=== PATIENT | male | born 1945 | race Caucasian/White ===

== ENCOUNTER 2016-07-31 10:14 | Inpatient (IN) | payer OTHER, BC ==
[~2016-07-31] VITALS: Ht 182.9 cm; Wt 160.0 kg
[~2016-07-31 10:14] MED LIST: ADVAIR 250/501 DISK IH; AMARYL1 MG PO; AMARYL2 MG PO; ASPIR-LOW81 MG PO; ASPIRIN EC325 MG PO; Advair 250/50 Diskus IH; Amaryl PO; BETAGAN BOTH EYES; CALCIUM MAGNES1 EACH PO; Coumadin,Jantoven PO; DAILY VITAMIN1 EAC8 PO; ENDOCET 5-3251 EACH PO; FEOSOL325 MG PO; Feosol PO; HYTRIN5 MG PO; Hytrin PO; JALYN 0.5-0.41 EACH PO; JALYN PO; LO-DOSE ASPIRIN81 M1 PO; LOTENSIN40 MG PO; Lotensin PO; MEVACOR10 MG PO; MUPIROCIN22 GM TP; Mevacor PO; Mycostatin TP; OMEGA 3 500 SO1 EACH PO; PERCOCET 5/31 TABLET PO; POTASSIUM-9999 MG PO; ROBAXIN500 MG PO; Robaxin PO; SENNA-TIME S T1 EACH PO; SUPERIOR DIGES1 EACH PO; Senokot S,Pericolace PO; TENORMIN25 MG PO; TRAMADOL HCL50 MG PO; Tenormin PO; XALATAN2.5 ML BOTH EYES; oxyCODONE PO
[2016-07-31 11:22] LABS: HEMATOCRIT 41.4 % (38.0-50.0); MCH 31.9 PG (29.0-34.0); MCHC 34.1 G/DL (30.0-36.0); MCV 93.7 FL (86-99); MEAN PLAT.VOLUME 10.4 uM^3 (9.0-12.4); PLATELET COUNT 177 K/uL (156-360); RBC DIS.WIDTH-SD 48.6 % (39-53); RED BLOOD COUNT 4.42 M/uL (4.00-5.50); WHITE BLOOD COUNT 8.9 K/uL (4.1-10.2)
[2016-07-31 11:31] LABS: CHLORIDE 107 mEq/L (99-109); POTASSIUM 4.9 mEq/L (3.7-5.4); SODIUM 139 mEq/L (136-147)
[2016-07-31 11:32] LABS: GLUCOSE 149 mg/dL (70-99)
[2016-07-31 11:34] LABS: ANION GAP 10 MEQ/L (2-14)
[2016-07-31 11:36] LABS: GFR ESTIMATE (CALCULATED) 53 mL/min/
[2016-07-31 11:37] LABS: UREA NITROGEN (BUN) 31 mg/dL (9-23)
[2016-07-31 11:44] LABS: TROP-I INTERPRETATION NEGATIVE; TROPONIN-I < 0.01 ng/mL (0.0-0.30)
[2016-07-31 13:58] LABS: TOTAL BILIRUBIN 0.9 mg/dL (0.0-1.0)
[2016-07-31 13:59] LABS: ALKALINE PHOSPHATASE 48 IU/L (3-129); SERUM ETHYL ALCOHOL < 10 mg/dL
[2016-07-31 14:02] LABS: DIRECT BILIRUBIN 0.3 mg/dL (0.0-0.3)
[2016-07-31 14:03] LABS: CREATINE KINASE 105 IU/L (1-294)
[2016-07-31 17:18] LABS: D-DIMER ELISA 0.51 mg/L FEU (< 0.57)
[2016-07-31 17:18] LABS: ADD MIUA? NO; BILIRUBIN NEGATIVE; BLOOD NEGATIVE; COLOR YELLOW ((YELLOW)); GLUCOSE (STRIP) NEGATIVE; KETONES 5; LEUKOCYTES NEGATIVE; NITRITE NEGATIVE; PROTEIN (STRIP) NEGATIVE; SPECIFIC GRAVITY 1.012 (1.000-1.030); UROBILINOGEN 0.2 MG/DL (0.2-1.0)
[2016-07-31] MEDS ORDERED: LOTENSIN10 MG PO (23:11)
[2016-07-31] MEDS ORDERED: DAILY VITAMIN1 EAC2 PO (23:13)
[2016-07-31] MEDS ORDERED: BUMETANIDE0.5 MG PO (23:15)
[2016-07-31] MEDS ORDERED: XARELTO20 MG PO (23:15)
[2016-07-31] MEDS ORDERED: LOPRESSOR25 MG PO (23:16)
[2016-08-01] VITALS (8 sets, daily range): BP systolic 74–123; BP diastolic 50–72
[2016-08-01 05:44] LABS: EOSINOPHIL (%) 1.4 % (0-5); EOSINOPHIL COUNT 0.1 K/uL (0-0.3); IMMATURE GRANULOCYTE (%) 0.5 % (0.0-0.7); INSTRUMENT ABS NEUTROPHIL CT 4.6 K/uL; MCH 31.4 PG (29.0-34.0); MCHC 33.1 G/DL (30.0-36.0); MEAN PLAT.VOLUME 10.3 uM^3 (9.0-12.4); MONOCYTE (%) 13.1 % (3-12); MONOCYTE COUNT 0.9 K/uL (0-0.8); NEUTROPHIL (%) 69.8 % (45-76); NEUTROPHIL COUNT 4.6 K/uL (1.8-6.4); PLATELET COUNT 149 K/uL (156-360); RBC DIS.WIDTH-CV 14.2 % (11.8-14.6); RBC DIS.WIDTH-SD 49.6 % (39-53); RED BLOOD COUNT 3.79 M/uL (4.00-5.50); WHITE BLOOD COUNT 6.6 K/uL (4.1-10.2)
[2016-08-01 06:34] LABS: ANION GAP 10 MEQ/L (2-14); CHLORIDE 107 MEQ/L (99-109); GFR ESTIMATE (CALCULATED) 58 mL/min/; SAMPLE HEMOLYSIS CHECK 0; SAMPLE ICTERIC CHECK 0; SAMPLE LIPEMIA CHECK 0; SODIUM 143 MEQ/L (136-147); UREA NITROGEN (BUN) 24 mg/dL (9-23)
[2016-08-01 06:37] LABS: GLUCOSE 93 mg/dL (70-99)
[2016-08-01 08:59] LABS: METH RESISTANT S AUREUS PCR NEGATIVE (NEGATIVE); PROBE CHECK PASS; SPECIMEN PROCESSING CONTROL PASS
[2016-08-01 23:30] LABS: EOSINOPHIL (%) 1.6 % (0-5); EOSINOPHIL COUNT 0.1 K/uL (0-0.3); HEMATOCRIT 36.5 % (38.0-50.0); IMMATURE GRANULOCYTE (%) 0.3 % (0.0-0.7); INSTRUMENT ABS NEUTROPHIL CT 4.4 K/uL; LYMPHOCYTE COUNT 0.9 K/uL (1.0-2.8); MCH 31.9 PG (29.0-34.0); MCHC 33.4 G/DL (30.0-36.0); MCV 95.3 FL (86-99); MEAN PLAT.VOLUME 10.2 uM^3 (9.0-12.4); MONOCYTE (%) 12.4 % (3-12); MONOCYTE COUNT 0.8 K/uL (0-0.8); NEUTROPHIL (%) 71.5 % (45-76); NEUTROPHIL COUNT 4.4 K/uL (1.8-6.4); PLATELET COUNT 161 K/uL (156-360); RBC DIS.WIDTH-CV 14.2 % (11.8-14.6); RBC DIS.WIDTH-SD 49.9 % (39-53); RED BLOOD COUNT 3.83 M/uL (4.00-5.50); WHITE BLOOD COUNT 6.2 K/uL (4.1-10.2)
[2016-08-02 04:15] VITALS: BP 111/62
[2016-08-02 06:03] LABS: ANION GAP 6 MEQ/L (2-14); CHLORIDE 111 MEQ/L (99-109); GFR ESTIMATE (CALCULATED) 58 mL/min/; GLUCOSE 102 mg/dL (70-99); IRON 28 MCG/DL (35-150); MAGNESIUM 1.8 mg/dl (1.3-2.7); POTASSIUM 3.8 MEQ/L (3.7-5.4); SAMPLE HEMOLYSIS CHECK 0; SAMPLE ICTERIC CHECK 0; SAMPLE LIPEMIA CHECK 0; SODIUM 141 MEQ/L (136-147); UREA NITROGEN (BUN) 19 mg/dL (9-23)
[2016-08-02 07:55] LABS: FERRITIN 183 NG/ML (22-322)
[2016-08-02 10:10] LABS: POINT-OF-CARE METER ID UU14162513
[2016-08-02 11:44] LABS: APPEARANCE LT.RED/CLOUDY; CRYSTALS NO CRYSTALS SEEN
[2016-08-02 11:45] LABS: RED CELL AREA COUNTED 8; RED CELL COUNT 39875 /MM^3 (0-1); RED CELL DILUTION 100; WBC AREA COUNTED 8; WBC DILUTION 100; WHITE CELL COUNT 56250 /MM^3 (0-200.0); WHITE CELL RAW COUNT 450
[2016-08-02 11:51] LABS: MONO RAW COUNT 9; MONONUCLEAR WBC'S 9 %; POLY RAW COUNT 91; POLYNUCLEAR WBC'S 91 % (0-25); SYNOVIAL FLUID EOSINOPHILS 0 % (0-25)
[2016-08-02 12:30] VITALS: BP 112/68
[2016-08-02 13:17] LABS: POINT-OF-CARE METER ID UU14162513
[2016-08-02 16:30] VITALS: BP 119/68
[2016-08-02 16:56] LABS: POINT-OF-CARE METER ID UU14162513
[2016-08-02 21:00] VITALS: BP 120/66
[2016-08-02 21:24] LABS: POINT-OF-CARE METER ID UU14162513
[2016-08-02 22:58] VITALS: BP 166/71
[2016-08-02 23:00] VITALS: BP 166/71
[2016-08-03 04:14] VITALS: BP 128/69
[2016-08-03 08:05] VITALS: BP 129/61
[2016-08-03 12:09] LABS: POINT-OF-CARE METER ID UU14149397
[2016-08-03 16:29] VITALS: BP 142/72
[2016-08-03 16:52] LABS: POINT-OF-CARE METER ID UU14149397
[2016-08-03 20:35] VITALS: BP 121/58
[2016-08-03 21:48] LABS: POINT-OF-CARE METER ID UU14188577
[2016-08-03 23:42] VITALS: BP 125/67
[2016-08-04 04:30] VITALS: BP 127/72
[2016-08-04 05:27] LABS: EOSINOPHIL (%) 4.6 % (0-5); EOSINOPHIL COUNT 0.2 K/uL (0-0.3); HEMATOCRIT 34.9 % (38.0-50.0); IMMATURE GRANULOCYTE (%) 0.2 % (0.0-0.7); INSTRUMENT ABS NEUTROPHIL CT 2.8 K/uL; MCH 31.6 PG (29.0-34.0); MCHC 33.2 G/DL (30.0-36.0); MCV 95.1 FL (86-99); MONOCYTE (%) 12.3 % (3-12); MONOCYTE COUNT 0.6 K/uL (0-0.8); NEUTROPHIL (%) 61.7 % (45-76); NEUTROPHIL COUNT 2.8 K/uL (1.8-6.4); PLATELET COUNT 152 K/uL (156-360); RBC DIS.WIDTH-CV 13.6 % (11.8-14.6); RBC DIS.WIDTH-SD 48.2 % (39-53); RED BLOOD COUNT 3.67 M/uL (4.00-5.50); WHITE BLOOD COUNT 4.6 K/uL (4.1-10.2)
[2016-08-04 05:49] LABS: ALKALINE PHOSPHATASE 34 IU/L (3-129); ANION GAP 7 MEQ/L (2-14); CHLORIDE 110 MEQ/L (99-109); GFR ESTIMATE (CALCULATED) > 59 mL/min/; GLUCOSE 101 mg/dL (70-99); POTASSIUM 3.8 MEQ/L (3.7-5.4); SAMPLE HEMOLYSIS CHECK 0; SAMPLE ICTERIC CHECK 0; SAMPLE LIPEMIA CHECK 0; SODIUM 142 MEQ/L (136-147); TOTAL BILIRUBIN 0.4 MG/DL (0.0-1.0); UREA NITROGEN (BUN) 15 mg/dL (9-23)
[2016-08-04 06:26] LABS: POINT-OF-CARE METER ID UU14149397
[2016-08-04 08:09] VITALS: BP 133/73
[2016-08-04 11:36] VITALS: BP 129/71
[2016-08-04 11:41] LABS: POINT-OF-CARE METER ID UU14188577
[2016-08-04 16:05] VITALS: BP 112/62
[2016-08-04 19:40] VITALS: BP 123/58
[2016-08-04 23:35] VITALS: BP 141/73
[2016-08-05 03:13] VITALS: BP 134/68
[2016-08-05 05:18] LABS: HEMATOCRIT 34.5 % (38.0-50.0); MCH 31.1 PG (29.0-34.0); MCHC 32.8 G/DL (30.0-36.0); MEAN PLAT.VOLUME 10.4 uM^3 (9.0-12.4); PLATELET COUNT 158 K/uL (156-360); RBC DIS.WIDTH-CV 13.6 % (11.8-14.6); RBC DIS.WIDTH-SD 48.3 % (39-53); RED BLOOD COUNT 3.63 M/uL (4.00-5.50)
[2016-08-05 05:34] LABS: ANION GAP 7 MEQ/L (2-14); CHLORIDE 108 MEQ/L (99-109); GFR ESTIMATE (CALCULATED) > 59 mL/min/; GLUCOSE 92 mg/dL (70-99); POTASSIUM 4.2 MEQ/L (3.7-5.4); SAMPLE HEMOLYSIS CHECK 0; SAMPLE ICTERIC CHECK 0; SAMPLE LIPEMIA CHECK 0; SODIUM 143 MEQ/L (136-147); UREA NITROGEN (BUN) 14 mg/dL (9-23)
[2016-08-05 07:32] LABS: POINT-OF-CARE METER ID UU14188577
[2016-08-05 08:05] VITALS: BP 152/77
[2016-08-05 12:00] LABS: POINT-OF-CARE METER ID UU14188577
[2016-08-05 16:06] VITALS: BP 159/63
[2016-08-05 19:28] VITALS: BP 108/74
[2016-08-05 23:20] VITALS: BP 129/68
[2016-08-06 03:55] VITALS: BP 128/80
[2016-08-06 07:53] VITALS: BP 120/78
[2016-08-06 16:23] VITALS: BP 128/66
[2016-08-06 20:27] VITALS: BP 123/57
[2016-08-07 00:49] VITALS: BP 131/69
[2016-08-07 04:53] VITALS: BP 134/69
[2016-08-07 05:11] LABS: EOSINOPHIL COUNT 0.2 K/uL (0-0.3); HEMATOCRIT 36.3 % (38.0-50.0); IMMATURE GRANULOCYTE (%) 0.3 % (0.0-0.7); LYMPHOCYTE COUNT 1.1 K/uL (1.0-2.8); MCH 31.6 PG (29.0-34.0); MCHC 33.9 G/DL (30.0-36.0); MCV 93.3 FL (86-99); MEAN PLAT.VOLUME 10.2 uM^3 (9.0-12.4); MONOCYTE (%) 11.7 % (3-12); MONOCYTE COUNT 0.7 K/uL (0-0.8); RBC DIS.WIDTH-CV 13.2 % (11.8-14.6); RBC DIS.WIDTH-SD 45.1 % (39-53); RED BLOOD COUNT 3.89 M/uL (4.00-5.50)
[2016-08-07 05:12] LABS: PLATELET COUNT 208 K/uL (156-360)
[2016-08-07 05:14] LABS: CHLORIDE 107 mEq/L (99-109); POTASSIUM 4.1 mEq/L (3.7-5.4); SODIUM 141 mEq/L (136-147)
[2016-08-07 05:16] LABS: GLUCOSE 98 mg/dL (70-99)
[2016-08-07 05:17] LABS: ANION GAP 6 MEQ/L (2-14)
[2016-08-07 05:20] LABS: GFR ESTIMATE (CALCULATED) > 59 mL/min/
[2016-08-07 05:21] LABS: UREA NITROGEN (BUN) 20 mg/dL (9-23)
[2016-08-07 08:44] VITALS: BP 141/73
[2016-08-07 11:44] LABS: POINT-OF-CARE METER ID UU14188577
[2016-08-07 11:46] VITALS: BP 113/74
[2016-08-07 19:19] LABS: POINT-OF-CARE METER ID UU13113675; POINT-OF-CARE USER ID ADMKMM76
[2016-08-07 21:04] VITALS: BP 136/78
[2016-08-07 21:13] LABS: POINT-OF-CARE METER ID UU14188577
[2016-08-07 23:01] LABS: HEMATOCRIT 38.7 % (38.0-50.0); MCH 31.6 PG (29.0-34.0); MCHC 33.9 G/DL (30.0-36.0); MCV 93.5 FL (86-99); MEAN PLAT.VOLUME 10.3 uM^3 (9.0-12.4); PLATELET COUNT 209 K/uL (156-360); RBC DIS.WIDTH-CV 13.1 % (11.8-14.6); RED BLOOD COUNT 4.14 M/uL (4.00-5.50)
[2016-08-07 23:02] LABS: WHITE BLOOD COUNT 9.1 K/uL (4.1-10.2)
[2016-08-07 23:35] VITALS: BP 142/63
[2016-08-08 04:08] VITALS: BP 140/76
[2016-08-08 06:02] LABS: EOSINOPHIL (%) 0.6 % (0-5); HEMATOCRIT 35.9 % (38.0-50.0); IMMATURE GRANULOCYTE (%) 0.3 % (0.0-0.7); INSTRUMENT ABS NEUTROPHIL CT 5.7 K/uL; LYMPHOCYTE COUNT 0.6 K/uL (1.0-2.8); MCH 31.3 PG (29.0-34.0); MCHC 33.4 G/DL (30.0-36.0); MCV 93.7 FL (86-99); MEAN PLAT.VOLUME 10.2 uM^3 (9.0-12.4); MONOCYTE (%) 11.2 % (3-12); MONOCYTE COUNT 0.8 K/uL (0-0.8); NEUTROPHIL (%) 79.6 % (45-76); NEUTROPHIL COUNT 5.7 K/uL (1.8-6.4); PLATELET COUNT 218 K/uL (156-360); RBC DIS.WIDTH-CV 13.3 % (11.8-14.6); RBC DIS.WIDTH-SD 45.6 % (39-53); RED BLOOD COUNT 3.83 M/uL (4.00-5.50); WHITE BLOOD COUNT 7.2 K/uL (4.1-10.2)
[2016-08-08 06:20] LABS: ANION GAP 6 MEQ/L (2-14); CHLORIDE 101 MEQ/L (99-109); GFR ESTIMATE (CALCULATED) > 59 mL/min/; GLUCOSE 143 mg/dL (70-99); POTASSIUM 4.3 MEQ/L (3.7-5.4); SAMPLE HEMOLYSIS CHECK 0; SAMPLE ICTERIC CHECK 0; SAMPLE LIPEMIA CHECK 0; SODIUM 136 MEQ/L (136-147); UREA NITROGEN (BUN) 15 mg/dL (9-23)
[2016-08-08 08:59] VITALS: BP 123/72
[2016-08-08 11:54] LABS: POINT-OF-CARE METER ID UU14188577
[2016-08-08 12:18] VITALS: BP 119/68
[2016-08-08 14:55] LABS: ANION GAP 5 MEQ/L (2-14); CHLORIDE 100 MEQ/L (99-109); GFR ESTIMATE (CALCULATED) > 59 mL/min/; GLUCOSE 149 mg/dL (70-99); POTASSIUM 4.2 MEQ/L (3.7-5.4); SAMPLE HEMOLYSIS CHECK 0; SAMPLE ICTERIC CHECK 0; SAMPLE LIPEMIA CHECK 0; SODIUM 135 MEQ/L (136-147); UREA NITROGEN (BUN) 15 mg/dL (9-23)
[2016-08-08 14:56] LABS: MAGNESIUM 1.4 mg/dl (1.3-2.7)
[2016-08-08 16:23] VITALS: BP 136/77
[2016-08-08 18:48] LABS: TROP-I INTERPRETATION NEGATIVE; TROPONIN-I < 0.01 ng/mL (0.0-0.30)
[2016-08-08 19:57] VITALS: BP 123/63
[2016-08-08 22:16] LABS: POINT-OF-CARE METER ID UU14188577
[2016-08-08 23:42] VITALS: BP 128/60
[2016-08-09 01:38] LABS: TROP-I INTERPRETATION NEGATIVE; TROPONIN-I < 0.01 ng/mL (0.0-0.30)
[2016-08-09 04:54] VITALS: BP 127/70
[2016-08-09 07:04] LABS: EOSINOPHIL (%) 3.2 % (0-5); EOSINOPHIL COUNT 0.2 K/uL (0-0.3); HEMATOCRIT 37.4 % (38.0-50.0); IMMATURE GRANULOCYTE (%) 0.5 % (0.0-0.7); INSTRUMENT ABS NEUTROPHIL CT 4.6 K/uL; LYMPHOCYTE COUNT 0.8 K/uL (1.0-2.8); MCH 31.3 PG (29.0-34.0); MCHC 33.4 G/DL (30.0-36.0); MCV 93.7 FL (86-99); MEAN PLAT.VOLUME 9.7 uM^3 (9.0-12.4); MONOCYTE (%) 11.9 % (3-12); MONOCYTE COUNT 0.8 K/uL (0-0.8); NEUTROPHIL (%) 71.2 % (45-76); NEUTROPHIL COUNT 4.6 K/uL (1.8-6.4); PLATELET COUNT 202 K/uL (156-360); RBC DIS.WIDTH-CV 13.2 % (11.8-14.6); RED BLOOD COUNT 3.99 M/uL (4.00-5.50); WHITE BLOOD COUNT 6.5 K/uL (4.1-10.2)
[2016-08-09 07:18] LABS: TROP-I INTERPRETATION NEGATIVE; TROPONIN-I < 0.01 ng/mL (0.0-0.30)
[2016-08-09 07:31] LABS: ANION GAP 7 MEQ/L (2-14); CHLORIDE 101 MEQ/L (99-109); GFR ESTIMATE (CALCULATED) > 59 mL/min/; GLUCOSE 113 mg/dL (70-99); POTASSIUM 4.3 MEQ/L (3.7-5.4); SAMPLE HEMOLYSIS CHECK 0; SAMPLE ICTERIC CHECK 0; SAMPLE LIPEMIA CHECK 0; SODIUM 139 MEQ/L (136-147); UREA NITROGEN (BUN) 13 mg/dL (9-23)
[2016-08-09 08:34] VITALS: BP 137/79
[2016-08-09] MEDS ORDERED: ANCEF,KEFZ2 GM/100 M IV (15:18)
[2016-08-09] MEDS ORDERED: LOPRESSOR25 MG PO (15:19)
[2016-08-09] MEDS ORDERED: LOVENOX40 MG/0.4 SC (15:19)
[2016-08-09] MEDS ORDERED: TYLENOL REGULA325 MG PO (15:20)
[2016-08-09] MEDS ORDERED: DOCUSATE SODIU100 MG PO (15:22)
[2016-08-09] MEDS ORDERED: BISACODYL5 MG PO (15:22)
[2016-08-09 15:24] VITALS: BP 113/71
[2016-08-09] MEDS ORDERED: NOVOLOG PE100 UNITS/ SC (15:26)
[2016-08-09] MEDS ORDERED: HYDROCODON-ACE1 EAC9 PO (15:39)
[2016-08-09 20:06] VITALS: BP 123/71
== END 2016-08-09 22:03 | DRG 464 ==
LOC: EME 10:14 → EDOF 08-01 00:34 → 5WEST 08-01 02:23 → 3EAST 08-01 23:15
PROVIDERS: Emergency Medicine; Hospitalist; Internal Medicine; Nurse Practitioner Adult Health; Orthopaedic Surgery; Physician Assistant; Physician Assistant Medical
DX: T84.54XA Infection and inflammatory reaction due to internal left knee prosthesis, initial encounter (principal); L03.116 Cellulitis of left lower limb; I48.2 Chronic atrial fibrillation; I10 Essential (primary) hypertension; I25.2 Old myocardial infarction; E66.3 Overweight; E11.9 Type 2 diabetes mellitus without complications; Z96.652 Presence of left artificial knee joint; Z96.641 Presence of right artificial hip joint; I87.2 Venous insufficiency (chronic) (peripheral); M17.12 Unilateral primary osteoarthritis, left knee; E66.01 Morbid (severe) obesity due to excess calories; Z68.42 Body mass index [BMI] 45.0-49.9, adult; H40.9 Unspecified glaucoma; Z88.1 Allergy status to other antibiotic agents; Z88.2 Allergy status to sulfonamides; Z88.8 Allergy status to other drugs, medicaments and biological substances; I95.9 Hypotension, unspecified; R94.31 Abnormal electrocardiogram [ECG] [EKG]
CPT/HCPCS: 70450; 70551; 71010; 71020; 71275; 73560; 73564; 76937; 78315; 80048; 80048 91; 80053; 80076; 81003; 82550; 82607; 82728; 82746; 82948; 83540; 83605; 83735; 84100; 84466; 84484; 85014; 85018; 85025; 85025 91; 85027; 85379; 85651; 86140; 86900; 86901; 87040; 87070; 87075; 87086; 87186; 87205; 87641; 87801; 89051; 89060; 93005; 93306; 93971; 94640; 94640 76; 95819; 97530 GO; 97530 GP; 99281; 99285; A9503; C1713; G0480; G8978 GP CI; G8979 GP CH; J0295; J0690; J1170; J1644; J1650; J1815; J2175; J2250; J2405; J2543; J3370; J3475; J7030; J7050; J7120

== ENCOUNTER 2016-11-12 20:55 | Inpatient (IN) | payer OTHER, BC ==
[~2016-11-12] VITALS: Ht 182.9 cm; Wt 150.2 kg
[~2016-11-12 20:55] MED LIST changes: +ACETAMINOPHEN325 M1 PO; +ANCEF,KEFZ2 GM/100 M IV; +BISACODYL5 MG PO; +BREO ELLIPTA I1 EACH IH; +BUMETANIDE0.5 MG PO; +COLACE100 MG PO; +DAILY VITAMIN1 EAC2 PO; +DOCUSATE SODIU100 MG PO; +DUONEB 2.5-0.5 M3 ML IPPB; +HYDROCODON-ACE1 EAC9 PO; +LOPRESSOR25 MG PO; +LOTENSIN10 MG PO; +LOVENOX40 MG/0.4 SC; +MAG-OXIDE400 MG PO; +NOVOLOG PE100 UNITS/ SC; +TYLENOL REGULA325 MG PO; +XARELTO20 MG PO
[2016-11-13 09:41] VITALS: BP 127/86
[2016-11-13 10:04] LABS: POINT-OF-CARE METER ID UU13113694
[2016-11-13 17:15] LABS: HEMATOCRIT 42.2 % (38.0-50.0); MCH 31.1 PG (29.0-34.0); MCHC 33.4 G/DL (30.0-36.0); MCV 93.2 FL (86-99); MEAN PLAT.VOLUME 10.7 uM^3 (9.0-12.4); PLATELET COUNT 155 K/uL (156-360); RBC DIS.WIDTH-CV 14.6 % (11.8-14.6); RBC DIS.WIDTH-SD 50.5 % (39-53); RED BLOOD COUNT 4.53 M/uL (4.00-5.50); WHITE BLOOD COUNT 11.2 K/uL (4.1-10.2)
[2016-11-13 18:34] VITALS: BP 119/59
[2016-11-13 20:19] VITALS: BP 121/61
[2016-11-13 23:55] VITALS: BP 101/60
[2016-11-14 03:50] VITALS: BP 107/55
[2016-11-14 06:24] LABS: HEMATOCRIT 40.7 % (38.0-50.0); MCV 93.1 FL (86-99)
[2016-11-14 06:57] LABS: ANION GAP 5 MEQ/L (2-14); CHLORIDE 105 MEQ/L (99-109); GFR ESTIMATE (CALCULATED) > 59 mL/min/; GLUCOSE 131 mg/dL (70-99); POTASSIUM 4.6 MEQ/L (3.7-5.4); SAMPLE HEMOLYSIS CHECK 0; SAMPLE ICTERIC CHECK 0; SAMPLE LIPEMIA CHECK 0; SODIUM 138 MEQ/L (136-147); UREA NITROGEN (BUN) 14 mg/dL (9-23)
[2016-11-14 08:04] VITALS: BP 123/71
[2016-11-14 12:01] VITALS: BP 102/62
[2016-11-14 16:04] VITALS: BP 111/64
[2016-11-14 20:09] VITALS: BP 111/57
[2016-11-14 23:34] VITALS: BP 120/78
[2016-11-15 03:47] VITALS: BP 112/76
[2016-11-15 05:45] LABS: HEMATOCRIT 36.2 % (38.0-50.0)
[2016-11-15 08:00] VITALS: BP 116/60
[2016-11-15 12:00] VITALS: BP 132/73
[2016-11-15 15:37] VITALS: BP 113/63
[2016-11-15 20:00] VITALS: BP 111/70
[2016-11-16 00:20] VITALS: BP 113/65
[2016-11-16 04:00] VITALS: BP 106/67
[2016-11-16 08:00] VITALS: BP 126/76
[2016-11-16] MEDS ORDERED: ENDOCET 5-3251 EACH PO (11:07)
[2016-11-16] MEDS ORDERED: LOVENOX40 MG/0.4 SC (11:07)
[2016-11-16 12:00] VITALS: BP 134/69
== END 2016-11-16 14:49 | DRG 467 ==
LOC: 2SOUTH → ENRESERV 20:55 → 3WEST 11-13 08:55 → 2SOUTH 11-13 08:55 → 3WEST 11-13 18:15 → ENRESERV 11-16 08:49 → CANRESERV 11-16 08:49 → 3WEST 11-16 14:49
PROVIDERS: Orthopaedic Surgery
DX: T84.54XA Infection and inflammatory reaction due to internal left knee prosthesis, initial encounter (principal); R78.81 Bacteremia; E66.01 Morbid (severe) obesity due to excess calories; Z68.41 Body mass index [BMI] 40.0-44.9, adult; E11.9 Type 2 diabetes mellitus without complications; I10 Essential (primary) hypertension; N40.0 Benign prostatic hyperplasia without lower urinary tract symptoms; I87.2 Venous insufficiency (chronic) (peripheral); E78.5 Hyperlipidemia, unspecified; H40.9 Unspecified glaucoma; Z87.442 Personal history of urinary calculi; Z83.3 Family history of diabetes mellitus; Z82.49 Family history of ischemic heart disease and other diseases of the circulatory system; Z80.42 Family history of malignant neoplasm of prostate; Z80.0 Family history of malignant neoplasm of digestive organs
CPT/HCPCS: 36415; 71010; 73560; 80048; 80053; 82948; 83036; 85014; 85018; 85027; 85610; 85730; 86900; 86901; 86920; 87070; 87081; 94640; 94640 76; 94799; 97530 GO; 97530 GP; 99202; C1713; C1776; J0131; J0330; J0690; J1100; J1170; J1650; J2250; J2405; J3010; J3370; J7050

== ENCOUNTER 2017-10-06 10:45 | Emergency (ER) | payer OTHER, BC ==
[~2017-10-06] VITALS: Ht 182.9 cm; Wt 174.2 kg
[2017-10-06 12:58] LABS: APPEARANCE SL.HAZY ((CLEAR)); BILIRUBIN NEGATIVE; BLOOD LARGE; COLOR AMBER ((YELLOW)); GLUCOSE (STRIP) NEGATIVE; KETONES NEGATIVE; LEUKOCYTES LARGE; NITRITE NEGATIVE; PROTEIN (STRIP) 100; UROBILINOGEN 0.2 MG/DL (0.2-1.0)
[2017-10-06 13:17] LABS: RED BLOOD CELLS RARE /HPF (0-5)
[2017-10-06 13:18] LABS: BACTERIA 1+ /HPF; EPITHELIAL CELLS NONE SEEN /HPF; MUCUS NONE SEEN /LPF; TRIPLE PHOSPHATE CRYSTALS 2+ /HPF; UCUL ADDED? YES
[2017-10-06 13:44] LABS: HEMATOCRIT 40.8 % (38.0-50.0); MCH 32.8 PG (29.0-34.0); MCHC 34.3 G/DL (30.0-36.0); MCV 95.6 FL (86-99); PLATELET COUNT 151 K/uL (156-360); RBC DIS.WIDTH-CV 12.5 % (11.8-14.6); RED BLOOD COUNT 4.27 M/uL (4.00-5.50); WHITE BLOOD COUNT 8.7 K/uL (4.1-10.2)
[2017-10-06 13:54] LABS: CHLORIDE 105 mEq/L (99-109); POTASSIUM 4.9 mEq/L (3.7-5.4); SODIUM 140 mEq/L (136-147)
[2017-10-06 13:56] LABS: GLUCOSE 106 mg/dL (70-99)
[2017-10-06 13:59] LABS: CREATININE 1.7 mg/dL (0.6-1.3); GFR ESTIMATE (CALCULATED) 42 mL/min/ (58.99-99999)
[2017-10-06 14:00] LABS: UREA NITROGEN (BUN) 37 mg/dL (9-23)
[2017-10-06] MEDS ORDERED: CIPRO500 MG PO (14:52)
[2017-10-06 15:22] VITALS: BP 102/58
== END 2017-10-06 15:23 | disposition home or self-care (01) ==
LOC: EME 10:45
PROVIDERS: Nurse Practitioner Family
DX: N30.91 Cystitis, unspecified with hematuria (principal); R10.31 Right lower quadrant pain; I48.91 Unspecified atrial fibrillation; Z79.01 Long term (current) use of anticoagulants; K57.50 Diverticulosis of both small and large intestine without perforation or abscess without bleeding; K42.9 Umbilical hernia without obstruction or gangrene; Z96.641 Presence of right artificial hip joint; Z88.2 Allergy status to sulfonamides; I12.9 Hypertensive chronic kidney disease with stage 1 through stage 4 chronic kidney disease, or unspecified chronic kidney disease; N18.9 Chronic kidney disease, unspecified; I25.2 Old myocardial infarction; J45.909 Unspecified asthma, uncomplicated
CPT/HCPCS: 74176; 80048; 81003; 85027; 87077; 87086; 87186; 99281; 99284